=== PATIENT | female | born 1980 | race Caucasian/White ===

== ENCOUNTER 2017-12-15 12:13 | Emergency (ER) | payer BC ==
[2017-12-15 13:37] VITALS: BP 168/95
--- NOTE | 2017-12-15 13:49 | UC ---
Elbow Pain - HPI Summary HPI Summary: RIGHT ELBOW PAIN X 2 WEEKS S/P FALL ON HER LEFT ELBOW 2 WEEKS AGO C/O PAIN , SWELLING OF THE LEFT ELBOW - History of Current Complaint Chief Complaint: UCUpperExtremity Stated Complaint: LEFT ELBOW/HAND PAIN/INJURY (FALL LAST WEEK) Time Seen by Provider: 12/15/17 13:40 Hx Obtained From: Patient Hx Last Menstrual Period: 2006 Mechanism of Injury: S/P FALL Onset/Duration: Weeks - 2, Traumatic, Still Present Severity Initially: Moderate Severity Currently: Moderate Pain Intensity: 5 Location Of Pain: Is Discrete @ - LEFT ELBOW Character: Aching Aggravating Factor(s): Movement Alleviating Factor(s): Rest Associated Signs And Symptoms: Positive: Swelling, Weakness, Numbness/Tingling - Allergies/Home Medications Allergies/Adverse Reactions: Allergies Allergy/AdvReac Type Severity Reaction Status Date / Time No Known Allergies Allergy Verified 12/15/17 13:20 Home Medications: Home Medications Flurbiprofen 50 mg PO BID 12/15/17 [History Confirmed 12/15/17] PMH/Surg Hx/FS Hx/Imm Hx - Additional Past Medical History Additional PMH: nerve pain, fibromyalgia, schwanoma - Surgical History Surgical History: Yes Surgery Procedure, Year, and Place: hysterectomy, large mass behind lt ear removed - 13 surgeries . cholecystectomy. acl and mcl repair of left knee 2004 - Family History Known Family History: Negative: Blood Disorder - Social History Alcohol Use: None Substance Use Type: None Smoking Status (MU): Never Smoked Tobacco Review of Systems Constitutional: Negative Skin: Negative Eyes: Negative ENT: Negative Respiratory: Negative Is Patient Immunocompromised?: No All Other Systems Reviewed And Are Negative: Yes Physical Exam Triage Information Reviewed: Yes Appearance: Well-Appearing, No Pain Distress, Well-Nourished Vital Signs: Initial Vital Signs Temp 98.4 F 12/15/17 13:24 Pulse 83 12/15/17 13:24 Resp 24 12/15/17 13:24 BP 168/95 12/15/17 13:24 Pulse Ox 98 12/15/17 13:24 Vital Signs Reviewed: Yes Eyes: Positive: Conjunctiva Clear ENT: Positive: Normal ENT inspection, Hearing grossly normal, Pharynx normal Neck: Positive: Supple, Nontender, No Lymphadenopathy Respiratory: Positive: Chest non-tender, Lungs clear, Normal breath sounds Cardiovascular: Positive: RRR, No Murmur, Pulses Normal Musculoskeletal: Positive: Other: - LEFT ELBOW : NO SWELLING, + TENDERNESS RADIAL HEAD , PAIN WITH FLEXION AND EXTENSION , LIMITED STRENGTH Diagnostics - Laboratory Diagnostic Studies Completed/Ordered: XRAY LEFT ELBOW : NO FRACTURE SEEN Elbow Pain Course/Dx - Differential Dx/Diagnosis Provider Diagnoses: CONTUSION LEFT ELBOW Discharge - Discharge Plan Condition: Stable Disposition: HOME Patient Education Materials: Contusion in Adults (ED) Referrals: John Reddy [Primary Care Provider] - 7 Days
--- NOTE | 2017-12-15 14:08 | RAD ---
INDICATION: Fall. Left elbow injury COMPARISON: None TECHNIQUE: AP, lateral, and oblique views were obtained. FINDINGS: There are no acute bony findings. Small soft tissue calcifications adjacent to the lateral epicondyle may be secondary to lateral epicondylitis. The elbow articulates normally. There is no joint effusion IMPRESSION: NO ACUTE BONY FINDINGS.
== END 2017-12-15 14:59 | disposition home or self-care (01) ==
LOC: UCCORT 12:13
DX: S50.02XA Contusion of left elbow, initial encounter (principal); W19.XXXA Unspecified fall, initial encounter; Y93.9 Activity, unspecified; Y92.9 Unspecified place or not applicable; Y99.9 Unspecified external cause status
CPT/HCPCS: 99212; G0463

== ENCOUNTER 2018-09-24 13:30 | Emergency (ER) | payer BC, OTHER ==
[2018-09-24 14:29] VITALS: BP 152/94
[2018-09-24] MEDS ORDERED: Ibuprofen ADULT LIQ* 600 MG/30 ML UDC PO ONE (15:21)
--- NOTE | 2018-09-24 15:21 | UC ---
General HPI - HPI Summary HPI Summary: 1PM TODAY WHILE AT WORK, PT TRIPPED OVER A BOX INJURING HER L ELBOW AND L THUMB. ALSO NOTES BRUISED BOTH KNEES. - History of Current Complaint Chief Complaint: UCGeneralIllness Stated Complaint: WC S/P FALL LEFT THUMB/ELBOW BILATERAL KNEES Time Seen by Provider: 09/24/18 15:14 Hx Obtained From: Patient Hx Last Menstrual Period: 2006 Onset/Duration: Sudden Onset Timing: Constant Pain Intensity: 5 Aggravating: MOVEMENT L THUMB IS PAINFUL Associated Signs & Symptoms: Negative: Weakness - Allergy/Home Medications Allergies/Adverse Reactions: Allergies Allergy/AdvReac Type Severity Reaction Status Date / Time No Known Allergies Allergy Verified 09/24/18 14:24 Home Medications: Home Medications NK [No Home Medications Reported] 09/24/18 [History Confirmed 09/24/18] PMH/Surg Hx/FS Hx/Imm Hx Previously Healthy: Yes - Surgical History Surgical History: Yes Surgery Procedure, Year, and Place: hysterectomy. large mass behind lt ear removed - Lt MASTOID DISEASE - DR LEE ([place]) - Lt FACIAL SLING - W/ ENDOTINE - (BIO-ABSORABLE POLYMER). cholecystectomy. acl and mcl repair of left knee 2004. PARTIAL THYROIDECTOMY. GOLD Lt EYELID -WEIGHTS - OP REPORT IN [facility] - DR BLACK IN [place] - MR CONDITIONAL 6 - Family History Known Family History: Positive: Non-Contributory Negative: Blood Disorder - Social History Occupation: Employed Full-time Alcohol Use: None Substance Use Type: None Smoking Status (MU): Never Smoked Tobacco - Immunization History Most Recent Tetanus Shot: utd Vaccination Up to Date: Yes Review of Systems All Other Systems Reviewed And Are Negative: Yes Constitutional: Positive: Negative Skin: Positive: Negative Eyes: Positive: Negative ENT: Positive: Negative Respiratory: Positive: Negative Cardiovascular: Positive: Negative Gastrointestinal: Positive: Negative Genitourinary: Positive: Negative Motor: Positive: Negative Neurovascular: Positive: Negative Musculoskeletal: Positive: Other: - BRUISIES BOTH KNEES AND PAINL ELBOW AND L THUMB AREAS Neurological: Positive: Negative Psychological: Positive: Negative Is Patient Immunocompromised?: No Physical Exam Triage Information Reviewed: Yes Appearance: Well-Appearing Vital Signs: Initial Vital Signs Temp 98 F 09/24/18 14:24 Pulse 71 09/24/18 14:24 Resp 16 09/24/18 14:24 BP 152/94 09/24/18 14:24 Pulse Ox 100 09/24/18 14:24 Vital Signs Reviewed: Yes Eyes: Positive: Conjunctiva Clear ENT: Negative: Nasal congestion Neck: Positive: Supple, Nontender, No Lymphadenopathy Respiratory: Positive: Chest non-tender, Lungs clear, Normal breath sounds Cardiovascular: Positive: RRR, No Murmur Abdomen Description: Positive: Nontender, No Organomegaly, Soft Bowel Sounds: Positive: Present Musculoskeletal: Positive: Other: - LUE:SHOULDER NON TENDER. TENDER OVER OLECRANON PROCESS BUT NO INSTABILITY AND ROM INTACT. FOREARM/WRIST/SNUFF BOX NON TENDER. THUMB AND TENAR EMINENCE BRUISED, SWOLLEN AND TENDER. LIMITED ROM THUMB BUT S/V INTACT. 2-5TH DIGITS HAVE FULL S/V/M FUNCTION. Neurological: Positive: Alert Psychological: Positive: Normal Response To Family, Age Appropriate Behavior Skin Exam: Normal Diagnostics - Radiology No standard instances Radiology Interpretation Completed By: Radiologist - L ELBOW=NO ACUTE OSSEOUS INJURY. IF SYMPTOMS PERSIST, RECOMMEND REPEAT IMAGING. L HAND =IMPRESSION: NO ACUTE OSSEOUS INJURY. IF SYMPTOMS PERSIST, RECOMMEND REPEAT IMAGING. Course/Dx - Course Course Of Treatment: Radiology notes no fx's L elbow and hand. I have concern for tiny chip over olecranon and chip out of distal phalanx L thumb. will splint thumb and refer to orthopedics. - Diagnoses Provider Diagnosis: Contusion of elbow, left, Sprain of hand, thumb, left Discharge - Sign-Out/Discharge Documenting (check all that apply): Patient Departure All imaging exams completed and their final reports reviewed: Yes - Discharge Plan Condition: Stable Disposition: HOME Patient Education Materials: Contusion in Adults (ED), Sprain (ED) Forms: *Work Release Referrals: Ag Wade MD [Medical Doctor] - As Soon As Possible Additional Instructions: DIAGNOSIS: CONTUSION L ELBOW. SPRAIN L THUMB. POSSIBLE CHIP FRACTURE L OLECRANON PROCESS AND DISTAL L THUMB. - Billing Disposition and Condition Condition: STABLE Disposition: Home
== END 2018-09-24 16:20 | disposition home or self-care (01) ==
LOC: UCCORT 13:30
DX: S50.02XA Contusion of left elbow, initial encounter (principal); S63.92XA Sprain of unspecified part of left wrist and hand, initial encounter; S63.602A Unspecified sprain of left thumb, initial encounter; W22.8XXA Striking against or struck by other objects, initial encounter; Y93.9 Activity, unspecified; Y92.9 Unspecified place or not applicable; Y99.0 Civilian activity done for income or pay
CPT/HCPCS: 99213; A9270-GY; G0463

== ENCOUNTER 2019-02-06 09:11 | Emergency (ER) | payer BC, OTHER ==
[2019-02-06 11:07] VITALS: BP 189/120
--- NOTE | 2019-02-06 11:19 | UC ---
FLU HPI - HPI Summary HPI Summary: 38-year-old female presents with 2 day history of chills, fatigue, general malaise, nasal congestion, bilateral ear fullness, sinus pressure, sore throat, and a nonproductive cough. Denies fever, ear drainage, vertigo, tinnitus, dysphagia, chest pain, shortness of breath, abdominal pain, nausea, vomiting, or diarrhea. - History of Current Complaint Chief Complaint: UCRespiratory Stated Complaint: EARS,SWOLLEN GLANDS Time Seen by Provider: 02/06/19 11:13 Hx Obtained From: Patient Hx Last Menstrual Period: 2006 Pain Intensity: 6 - Allergy/Home Medications Allergies/Adverse Reactions: Allergies Allergy/AdvReac Type Severity Reaction Status Date / Time No Known Allergies Allergy Verified 02/06/19 11:07 Home Medications: Home Medications Ibuprofen TAB* [Advil TAB*] 800 mg PO Q6H PRN 02/06/19 [History Confirmed ] PMH/Surg Hx/FS Hx/Imm Hx Cardiovascular History: Hypertension - Surgical History Surgical History: Yes Surgery Procedure, Year, and Place: hysterectomy. large mass behind lt ear removed - Lt MASTOID DISEASE - DR LEE ([place]) - Lt FACIAL SLING - W/ ENDOTINE - (BIO-ABSORABLE POLYMER). cholecystectomy. acl and mcl repair of left knee 2004. PARTIAL THYROIDECTOMY. GOLD Lt EYELID -WEIGHTS - OP REPORT IN [facility] - DR BLACK IN [place] - MR CONDITIONAL 6 - Family History Known Family History: Positive: Non-Contributory - Social History Occupation: Employed Full-time Lives: With Family Alcohol Use: Rare Substance Use Type: None Smoking Status (MU): Never Smoked Tobacco - Immunization History Most Recent Tetanus Shot: utd Vaccination Up to Date: Yes Review of Systems All Other Systems Reviewed And Are Negative: Yes Constitutional: Positive: Chills, Fatigue. Negative: Fever Skin: Negative: Rash Eyes: Negative: Drainage, Eye Redness ENT: Positive: Sore Throat, Nasal Discharge, Sinus Congestion, Sinus Pain/ Tenderness Respiratory: Positive: Cough. Negative: Shortness Of Breath Cardiovascular: Negative: Palpitations, Chest Pain Gastrointestinal: Negative: Abdominal Pain, Vomiting, Diarrhea, Nausea Genitourinary: Positive: Negative Musculoskeletal: Positive: Negative Neurological: Positive: Negative Is Patient Immunocompromised?: No Physical Exam - Summary Physical Exam Summary: GENERAL APPEARANCE: Well developed, well nourished, alert and cooperative, and appears to be in no acute distress. EYES: Conjunctiva clear. No drainage. EARS: Right external auditory canals and tympanic membrane opaque with good cone of light. Left external auditory canal with cerumen impaction. NOSE: Mild-moderate nasal congestion. THROAT: Mild pharyngeal erythema with cobblestoning. No tonsilar inflammation, swelling, exudate, or lesions. Uvula midline. NECK: Neck supple, non-tender without lymphadenopathy. CARDIAC: Normal S1 and S2. No S3, S4 or murmurs. Rhythm is regular. There is no peripheral edema, cyanosis or pallor. Extremities are warm and well perfused. Capillary refill is less than 2 seconds. Peripheral pulses intact. LUNGS: Clear to auscultation without rales, rhonchi, wheezing or diminished breath sounds. ABDOMEN: Positive bowel sounds. Soft, nondistended, nontender. No guarding or rebound. No masses or hepatosplenomegally. MUSKULOSKELETAL: ROM intact to all extremities. No joint erythema or tenderness. Normal muscular development. Normal gait. SKIN: Skin normal color, texture and turgor with no lesions or eruptions. Triage Information Reviewed: Yes Vital Signs: Initial Vital Signs Temp 97.2 F 02/06/19 10:58 Pulse 78 02/06/19 10:58 Resp 16 02/06/19 10:58 BP 189/120 02/06/19 10:58 Pulse Ox 98 02/06/19 10:58 Vital Signs Reviewed: Yes Flu Course/Dx - Course Course Of Treatment: 38-year-old female presents with 2 day history of chills, fatigue, general malaise, nasal congestion, bilateral ear fullness, sinus pressure, sore throat, and a nonproductive cough. Denies fever, ear drainage, vertigo, tinnitus, dysphagia, chest pain, shortness of breath, abdominal pain, nausea, vomiting, or diarrhea. Afebrile. Patient is hypertensive otherwise vital signs are stable. States she has an appointment in 5 days with her PCP to address her blood pressure. Exam is remarkable for mild to moderate nasal congestion, mild maxillary sinus tenderness, pharyngeal cobblestoning, and a dry nonproductive cough. Rapid flu test was negative. Recommending symptomatic treatment for a viral urinary tract infection including saline rinses, fluticasone nasal spray, and acetaminophen as needed for aches pains and fever. I have recommended that she avoid [id number] cold and flu medications as well as NSAIDs until she has an opportunity to address her blood pressure with her PCP. She was encouraged to keep her appointment in 5 days. Anticipatory guidance and warning symptoms were reviewed with the patient. Verbalizes understanding and so plan of care. - Differential Dx/Diagnosis Differential Diagnosis/HQI/PQRI: Bronchitis, Influenza, Pneumonia, Upper Respiratory Infection Provider Diagnosis: Viral URI with cough Discharge - Sign-Out/Discharge Documenting (check all that apply): Patient Departure All imaging exams completed and their final reports reviewed: No Studies - Discharge Plan Condition: Stable Disposition: HOME Prescriptions: Fluticasone NASAL SPRAY 50MCG* [Flonase NASAL SPRAY 50MCG*] 2 spray BOTH NARES DAILY #1 btl Patient Education Materials: Upper Respiratory Infection (ED) Referrals: John Reddy [Primary Care Provider] - 5 Days (Keep your appointment as scheduled.) Additional Instructions: Your history and exam are consistent with a viral upper respiratory infection. Viral infections do not respond to antibiotics and are limited to the treatment of symptoms. Viral infections typically run their course in 7-10 days. Drink plenty of fluids to avoid dehydration especially if you are running any fever. Use a saline rinse kit such as Neti Pot or NeilMed at least twice a day to help thin secretions and promote drainage of the sinuses. Use fluticasone (Flonase) nasal spray 2 sprays each nostril once daily. Take over the counter acetaminophen (Tylenol) according to directions as needed for pain or fever. Use salt water gargles several times a day if you have a sore throat. You may also use Chloraseptic spray or Cepacol lonzenges according to directions which contain a numbing medication and can provide some temporary relief from your sore throat. Your blood pressure was very elevated in the clinic today. Follow up with your primary care provider as scheduled on Thursday. Seek immediate medical attention in the emergency room if you have fever greater than 100.5 F despite taking acetaminophen or ibuprofen, have chest pain , difficulty breathing, are unable to swallow, or have any worsening of symptoms. - Billing Disposition and Condition Condition: STABLE Disposition: Home
[2019-02-06 11:27] LABS: Influenza A Molecular NEGATIVE (Negative); Influenza B Molecular NEGATIVE (Negative)
== END 2019-02-06 11:51 | disposition home or self-care (01) ==
LOC: UCCORT 09:11
DX: J06.9 Acute upper respiratory infection, unspecified (principal); R05 Cough; R53.83 Other fatigue; J02.9 Acute pharyngitis, unspecified; I10 Essential (primary) hypertension
CPT/HCPCS: 99211; G0463